=== PATIENT | female | born 1990 | race African-American/Black ===

== ENCOUNTER 2017-07-13 19:37 | Emergency (ER) | payer OTHER ==
[2017-07-13 19:50] VITALS: BP 116/76; TEMP 99.4; BMI 29.2
[2017-07-13] MEDS ORDERED: LIDOCAINE HCL 1%, 10 MG/ML (20ML VIAL) ONE (21:35)
[2017-07-13] MEDS ORDERED: traMADol HCL 50 MG TABLET ONE (21:39)
[2017-07-13] MEDS ORDERED: traMADol HCL 50 MG TABLET PO ONE (21:58)
--- NOTE | 2017-07-13 22:20 | PDOC ---
History of Present Illness - General Chief Complaint: Abscess Boil Stated Complaint: CYST Time Seen by Provider: 07/13/17 21:19 History Source: Patient - History of Present Illness Location: reports: other (R axilla) Past History - Past Medical History Allergies/Adverse Reactions: Allergies Allergy/AdvReac Type Severity Reaction Status Date / Time No Known Allergies Allergy Verified 07/13/17 19:48 Home Medications: Ambulatory Orders Vitamins (Sjr) - 1 tab PO DAILY 02/02/13 Iron 1 tab PO DAILY 02/13/13 Oxycodone HCl/Acetaminophen [Percocet 5-325 mg Tablet -] 1 tab PO Q4H #20 tablet 02/16/13 Labetalol HCl [Normodyne -] 200 mg PO BID #1 tablet 02/17/13 Labetalol HCl [Normodyne -] 200 mg PO BID #30 tablet 02/20/13 Clindamycin [Cleocin -] 300 mg PO Q6HPO #28 capsule 07/13/17 Ibuprofen [Motrin -] 2 tab PO QID #28 tablet 07/13/17 Asthma: No Cancer: No Cardiac Disorders: No COPD: No Diabetes: No HTN: No Seizures: Yes Thyroid Disease: No - Reproductive History (#): 1 Para: 1 Therapeutic (s) & number: No Spontaneous : 0 - Suicide/Smoking/Psychosocial Hx Smoking Status: Yes Smoking History: Current every day smoker Have you smoked in the past 12 months: No Number of Cigarettes Smoked Daily: 5 Information on smoking cessation initiated: No Hx Alcohol Use: No Drug/Substance Use Hx: No Hx Substance Use Treatment: No Review of Systems - Review of Systems Constitutional: No: Chills, Fever Integumentary: Yes: Other (abscess) *Physical Exam - Vital Signs Last Vital Signs Temp Pulse Resp BP Pulse Ox 99.4 F 120 H 18 116/76 98 07/13/17 19:48 07/13/17 19:48 07/13/17 19:48 07/13/17 19:48 07/13/17 19:48 - Physical Exam General Appearance: Yes: Appropriately Dressed. No: Apparent Distress HEENT: positive: Normal Voice Neck: positive: Supple Respiratory/Chest: positive: Lungs Clear, Normal Breath Sounds. negative: Respiratory Distress Cardiovascular: positive: S1, S2 Integumentary: positive: Dry, Warm, Other (5x2 cm induration to R axilla, no erythema) Neurologic: positive: Fully Oriented, Alert, Normal Mood/Affect Procedures - Incision and Drainage I&D Site: Right: Axilla Betadine cleansed: Yes Anesthesia: 1% Lidocaine Volume(ml): 7 Blade Size: 11 Attempts: 1 (w/ copious purulent drainage) Iodinated Packin/ in Complications: none Dressing: Yes ED Treatment Course - Medications Given in the ED: ED Medications Discontinued Medications Generic Name Dose Route Start Last Admin Trade Name David PRN Reason Stop Dose Admin Tramadol HCl 50 mg 07/13/17 21:58 07/13/17 21:39 Ultram - PO 07/13/17 21:59 50 mg ONCE ONE Administration Medical Decision Making - Medical Decision Making 07/13/17 22:47 26-year-old female, history of recurrent abscesses, here with abscess to right axilla x several days. No trauma. Denies fever or chills. Patient well- appearing with tachycardia to 120 at triage, that decreased to 108 without any intervention. Abscess I&D with copious amount of purulent drainage. Packing placed and patient started on antibiotics. Tetanus up-to-date. Patient to appear for wound check in 48 hours, as discussed *DC/Admit/Observation/Transfer Diagnosis at time of Disposition: Abscess - Discharge Dispostion Disposition: HOME Condition at time of disposition: Improved - Prescriptions Prescriptions: Clindamycin [Cleocin -] 300 mg PO Q6HPO #28 capsule Ibuprofen [Motrin -] 2 tab PO QID #28 tablet - Referrals - Patient Instructions Printed Discharge Instructions: DI for Incision and Drainage of a Skin Abscess Additional Instructions: Keep wound clean and dry for the next 2 days. Take antibiotics and Motrin as directed. Return in 2 days for wound check - Post Discharge Activity Forms/Work/School Notes: Back to Work
[2017-07-13 22:43] VITALS: PULSE 108
== END 2017-07-13 22:43 | disposition home or self-care (01) ==
LOC: JER 19:37
PROC: 0J980ZZ Drainage of Abdomen Subcutaneous Tissue and Fascia, Open Approach (ICD-10-PCS; principal; 2017-07-13)
DX: L02.411 Cutaneous abscess of right axilla (principal)
CPT/HCPCS: 10060; 99282-25

== ENCOUNTER 2019-08-17 16:03 | Emergency (ER) | payer OTHER ==
--- NOTE | 2019-08-17 16:09 | PDOC ---
Rapid Medical Evaluation Chief Complaint: Laceration Time Seen by Provider: 08/17/19 16:06 Medical Evaluation: Allergies Allergy/AdvReac Type Severity Reaction Status Date / Time No Known Allergies Allergy Verified 07/13/17 19:48 08/17/19 16:07 I performed a brief in-person evaluation of this patient. Pt is a 28 y/o female who injured her R MF with a window. The window broke and she believes she has glass in her wound. She states her last tetanus was less than 5 years ago. Pertinent physical exam findings: R MF bandaged, sensation intact distally I have ordered the following: R hand xr Patient to proceed to ED for further evaluation. Discharge Disposition - Diagnosis Laceration of right middle finger - Referrals - Patient Instructions - Post Discharge Activity
[2019-08-17 16:15] VITALS: BP 109/74; PULSE 95; TEMP 98.1; BMI 28.0
--- NOTE | 2019-08-17 17:01 | PDOC ---
History of Present Illness - General Chief Complaint: Laceration Stated Complaint: FINGER INJURY-LACERATION Time Seen by Provider: 08/17/19 16:06 History Source: Patient Exam Limitations: Clinical Condition - History of Present Illness Initial Comments: 08/17/19 17:03 Patient with no significant past medical history present with complaint of laceration to back of right middle finger status post cleaning glass accidentally cut herself with a piece of glass prior to arrival. Patient is not sure if a piece of glass was left in the finger. Reported last tetanus vaccine in the last 5 years. Denies numbness or tingling sensation or difficulty moving finger. Reported bleeding to fingers stopped after putting bandage. Denies any other symptoms Timing/Duration: reports: just prior to arrival Past History - Medical History Allergies/Adverse Reactions: Allergies Allergy/AdvReac Type Severity Reaction Status Date / Time No Known Allergies Allergy Verified 08/17/19 16:10 Home Medications: Ambulatory Orders Vitamins (Sjr) - 1 tab PO DAILY 02/02/13 Iron 1 tab PO DAILY 02/13/13 Oxycodone HCl/Acetaminophen [Percocet 5-325 mg Tablet -] 1 tab PO Q4H #20 tablet 02/16/13 Labetalol HCl [Normodyne -] 200 mg PO BID #1 tablet 02/17/13 Labetalol HCl [Normodyne -] 200 mg PO BID #30 tablet 02/20/13 Clindamycin [Cleocin -] 300 mg PO Q6HPO #28 capsule 07/13/17 Ibuprofen [Motrin -] 2 tab PO QID #28 tablet 07/13/17 Amox-Tr/K Cl [Augmentin - 875Mg Tablet] 1 tab PO BID #14 tablet 08/17/19 Asthma: No Cancer: No Cardiac Disorders: No COPD: No Diabetes: No HTN: No Seizures: Yes Thyroid Disease: No - Reproductive History (#): 1 Para: 1 Therapeutic (s) & number: No Spontaneous : 0 - Psycho-Social/Smoking History Smoking Status: Yes Smoking History: Current every day smoker Have you smoked in the past 12 months: Yes Number of Cigarettes Smoked Daily: 3 Information on smoking cessation initiated: No - Substance Abuse Hx (Audit-C & DAST Scrn) How often the patient has a drink containing alcohol: Never Score: In Men: 4 or > Positive; In Women: 3 or > Positive: 0 Screen Result (Pos requires Nsg. Audit-10AR): Negative Review of Systems - Review of Systems Able to Perform ROS?: Yes Is the patient limited Romanian proficient: No Constitutional: No: Chills, Fever, Malaise HEENTM: No: Symptoms Reported, See HPI, Eye Pain, Blurred Vision, Tearing, Recent change in vision, Double Vision, Cataracts, Ear Pain, Ocular Prothesis, Ear Discharge, Nose Pain, Nose Congestion, Tinnitus, Nose Bleeding, Hearing Loss, Throat Pain, Throat Swelling, Mouth Pain, Dental Problems, Difficulty Swallowing, Mouth Swelling, Other Respiratory: No: Symptoms reported, See HPI, Cough, Orthopnea, Shortness of Breath, SOB with Exertion, SOB at Rest, Stridor, Wheezing, Productive cough, Hemoptysis, Other Cardiac (ROS): No: Symptoms Reported ABD/GI: No: Symptoms Reported Musculoskeletal: No: Symptoms Reported, Muscle Pain Integumentary: Yes: Symptoms Reported, See HPI, Other (Laceration to back of right middle finger) Neurological: No: Symptoms reported, Paresthesia, Tingling All Other Systems: Reviewed and Negative *Physical Exam - Vital Signs Last Vital Signs Temp Pulse Resp BP Pulse Ox 98.1 F 95 H 18 109/74 100 08/17/19 16:06 08/17/19 16:06 08/17/19 16:06 08/17/19 16:06 08/17/19 16:06 - Physical Exam 08/17/19 17:08 GENERAL: Well developed, well nourished. Awake and alert. No acute distress. PULMONARY: No evidence of respiratory distress. MUSCULOSKELETAL : mild tenderness over dorsal aspect of middle phalange of right index finger over 1 cm superficial laceration with a skin flap. Full range of motion of fingers. 5 out of 5 strength to fingers SKIN: Warm and dry. Normal capillary refill. 1 cm superficial laceration with skin flap to proximal aspect of middle phalange of right index finger with minimal bleeding. Another 1 mm superficial abrasion to back of right hand without bleeding NEUROLOGICAL: Alert, awake, appropriate. No motor deficits in the lower extremities. Gait is normal without ataxia. PSYCHIATRIC: Cooperative. Good eye contact. Appropriate mood and affect. General Appearance: Yes: Nourished, Appropriately Dressed. No: Apparent Distress Procedures - Laceration/Wound Repair Right Posterior Proximal Dorsal Finger 3rd digit Wound Length: to 2.5 cm Wound Explored: no foreign body present Wound's Depth, Shape: superficial, flap Irrigated w/ Saline: Yes Betadine Prep: Yes Amount of Anesthetic (ccs): 0 Wound Repaired With: Steri-strips Layer Closure: No Sterile Dressing Applied: Yes Splint Applied: No Sling Applied: No Progress: 08/17/19 17:07 cm superficial laceration with skin evulsion with a flap to dorsal aspect of right middle finger on proximal aspect of middle phalange with minimal bleeding. No foreign body seen on wound. Another 1 mm superficial abrasion to back of right hand with no bleeding. Wound irrigated with normal saline. X-ray of the finger shows no foreign body on x-ray. Laceration closed with Dermabond and Steri-Strips applied to wound. Patient tolerated procedure well and wound covered adhesive bandage. Medical Decision Making - Medical Decision Making 08/17/19 17:04 Patient with no significant past medical history present with complaint of laceration to back of right middle finger status post cleaning glass accidentally cut herself with a piece of glass prior to arrival. Patient is not sure if a piece of glass was left in the finger. Reported last tetanus vaccine in the last 5 years. Denies numbness or tingling sensation or difficulty moving finger. Reported bleeding to fingers stopped after putting bandage. Denies any other symptoms Exam significant for 1 cm superficial laceration with skin evulsion with a flap to dorsal aspect of right middle finger on proximal aspect of middle phalange with minimal bleeding. No foreign body seen on wound. Another 1 mm superficial abrasion to back of right hand with no bleeding. Wound irrigated with normal saline. X-ray of the finger shows no foreign body on x-ray. Laceration closed with Dermabond and Steri-Strips applied to wound. Patient tolerated procedure well and wound covered adhesive bandage. Patient educated on home wound care. Patient stable for discharge on Augmentin antibiotic for infection prophylaxis with PCP follow-up Discharge - Discharge Information Problems reviewed: Yes Clinical Impression/Diagnosis: Laceration of right middle finger Qualifiers: Encounter type: initial encounter Damage to nail status: without damage Foreign body presence: without foreign body Qualified Code(s): S61.212A - Laceration without foreign body of right middle finger without damage to nail, initial encounter Condition: Stable Disposition: HOME - Admission No - Additional Discharge Information Prescriptions: Amox-Tr/K Cl [Augmentin - 875Mg Tablet] 1 tab PO BID #14 tablet - Follow up/Referral Referrals: Rohit Trinidad [Primary Care Provider] - - Patient Discharge Instructions Patient Printed Discharge Instructions: DI for Laceration Repair Steri-Strips, DI for Laceration Repair With Dermabond Additional Instructions: Keep wound clean and dry for the next 24 hours. Leave Steri-Strips on for 5 days after which you should remove the Steri-Strips. Apply bacitracin to wound after removing Steri-Strips. Take prescribed antibiotics and finish it. Follow-up with primary care as needed - Post Discharge Activity
== END 2019-08-17 17:13 | disposition home or self-care (01) ==
LOC: JER 16:03 → JERFT 16:03
PROC: 0HQFXZZ Repair Right Hand Skin, External Approach (ICD-10-PCS; principal; 2019-08-17)
DX: S61.212A Laceration without foreign body of right middle finger without damage to nail, initial encounter (principal); W25.XXXA Contact with sharp glass, initial encounter
CPT/HCPCS: 73130-TC-RT-FY; 99283-25

== ENCOUNTER 2021-06-22 00:06 | Emergency (ER) | payer OTHER ==
[2021-06-22] MEDS ORDERED: ACETAMINOPHEN 325 MG TABLET (FP) PO ONE (00:30)
[2021-06-22] MEDS ORDERED: ACETAMINOPHEN 325 MG TABLET (FP) ONE (00:32)
[2021-06-22 00:46] VITALS: BP 105/65; PULSE 90; TEMP 97.8; BMI 23.0
[2021-06-22 00:56] LABS: EPI CELLS >36 /uL (0-25.1); HYALINE CASTS 55 /uL (0-3.1); PH,URINE 5.5 (5.0-8.0); URINE APPEARANCE CLOUDY; URINE BACTERIA 69 /uL (0-1359); URINE BILIRUBIN NEGATIVE (NEGATIVE); URINE COLOR DK YELLOW; URINE GLUCOSE (UA) NEGATIVE (NEGATIVE); URINE KETONE TRACE (NEGATIVE); URINE LEUK ESTERASE TRACE (NEGATIVE); URINE NITRITE NEGATIVE (NEGATIVE); URINE PROTEIN 2+ (NEGATIVE); URINE RBC 14 /uL (0-23.9); URINE WBC 71 /uL (0-25.8)
[2021-06-22 05:08] LABS: URINE CRYSTALS MANY /hpf
== END 2021-06-22 02:38 | disposition home or self-care (01) ==
LOC: JER 00:06
DX: M54.50 Low back pain, unspecified (principal)
CPT/HCPCS: 76817-TC; 81003; 87086; 99284-25

== ENCOUNTER 2021-09-26 03:10 | Emergency (ER) | payer OTHER ==
[2021-09-26 03:32] VITALS: TEMP 97.8; BMI 25.4
[2021-09-26 14:45] VITALS: BP 106/69; PULSE 73; RESP 16
== END 2021-09-26 14:45 | disposition home or self-care (01) ==
LOC: JER 03:10
DX: T76.11XA Adult physical abuse, suspected, initial encounter (principal); Y04.0XXA Assault by unarmed brawl or fight, initial encounter; Y92.9 Unspecified place or not applicable
CPT/HCPCS: 76815; 99284-25

== ENCOUNTER 2021-12-31 10:43 | Inpatient (IN) | payer OTHER ==
[2021-12-31] MEDS ORDERED: NIFEdipine 10 MG CAPSULE (FP) ONE (11:40)
[2021-12-31] MEDS: ELECTROLYTE-148 SOLN 1,000 ML IV SCH (11:45)
[2021-12-31] MEDS ORDERED: MAGNESIUM 4GM/H20 - 4 GM/100 ML IVPB IVPB ONE (11:46)
[2021-12-31] MEDS: MAGNESIUM 4GM/H20 - 4 GM/100 ML IVPB IVPB SCH (11:50)
[2021-12-31] MEDS ORDERED: MAGNESIUM SULFATE 20GM/500ML - 20 GM/500 ML INFUS.BAG ONE ×2 (12:18→21:51)
[2021-12-31] MEDS: MAGNESIUM SULFATE 20GM/500ML - 20 GM/500 ML INFUS.BAG IVPB SCH (12:20)
[2021-12-31] MEDS ORDERED: NIFEdipine 10 MG CAPSULE (FP) PO STA (12:25)
[2021-12-31] MEDS ORDERED: LABETALOL HCL 200 MG TABLET (FP) PO SCH (12:30)
[2021-12-31] MEDS ORDERED: LABETALOL HCL 200 MG TABLET (FP) ONE ×2 (12:54→21:51)
[2021-12-31 12:59] LABS: HEMOGLOBIN 12.4 GM/dL (10.7-15.3); MCHC 33.5 g/dl (32.0-36.0); MEAN CELL VOLUME 98.4 fl (80-96); MEAN PLT VOLUME 10.4 fl (7.5-11.1); PLATELET COUNT 215 10^3/uL (134-434); RBC 3.76 M/mm3 (3.60-5.2); RDW 13.4 % (11.6-15.6); WHITE BLOOD COUNT 11.3 K/mm3 (4.0-10.0)
[2021-12-31 13:24] LABS: ALBUMIN 2.9 g/dl (3.4-5.0); BLOOD UREA NITROGEN 10.7 mg/dL (7-18); CALCIUM 10.6 mg/dL (8.5-10.1)
[2021-12-31 13:27] LABS: CREATININE 0.6 mg/dL (0.55-1.3)
[2021-12-31 13:29] LABS: BILIRUBIN,TOTAL 0.4 mg/dL (0.2-1); TOT PROT 6.8 g/dl (6.4-8.2)
[2021-12-31 13:37] LABS: ANISOCYTOSIS 1+; MACROCYTOSIS 1+
[2021-12-31 13:54] VITALS: BMI 31.3
[2021-12-31 14:18] LABS: HIV INTERPRETATION NEGATIVE (NEGATIVE)
[2021-12-31 19:31] LABS: INR 0.96 (0.83-1.09)
[2021-12-31 19:34] LABS: ACTIVATED PTT 27.5 SECONDS (25.2-36.5)
[2021-12-31 19:45] LABS: MAGNESIUM 5.4 mg/dL (1.8-2.4)
[2021-12-31] MEDS ORDERED: BETAMET ACET/BETAMET NA PH 30 MG/5 ML VIAL ONE (19:55)
[2021-12-31] MEDS ORDERED: BETAMET ACET/BETAMET NA PH 30 MG/5 ML VIAL IM ONE (20:00)
[2021-12-31] MEDS: LABETALOL HCL 200 MG TABLET (FP) PO SCH (22:00)
[2022-01-01 02:24] LABS: MAGNESIUM 5.7 mg/dL (1.8-2.4)
[2022-01-01 07:20] LABS: HEMATOCRIT 33.8 % (32.4-45.2); HEMOGLOBIN 11.2 GM/dL (10.7-15.3); MCH 32.7 pg (25.7-33.7); MEAN CELL VOLUME 99.3 fl (80-96); MEAN PLT VOLUME 10.5 fl (7.5-11.1); PLATELET COUNT 228 10^3/uL (134-434); RBC 3.41 M/mm3 (3.60-5.2); RDW 13.6 % (11.6-15.6); WHITE BLOOD COUNT 12.8 K/mm3 (4.0-10.0)
[2022-01-01] MEDS ORDERED: MAGNESIUM SULFATE 20GM/500ML - 20 GM/500 ML INFUS.BAG ONE (07:47)
[2022-01-01 07:49] LABS: CHLORIDE 108 mmol/L (98-107); SODIUM 139 mmol/L (136-145)
[2022-01-01] MEDS: MAGNESIUM SULFATE 20GM/500ML - 20 GM/500 ML INFUS.BAG IVPB SCH ×2 (07:50→13:16)
[2022-01-01 07:55] LABS: ALBUMIN 2.7 g/dl (3.4-5.0); ANION GAP 11 MMOL/L (8-16); BLOOD UREA NITROGEN 12.6 mg/dL (7-18); CO2 20 mmol/L (21-32); GLUCOSE,RANDOM 167 mg/dL (74-106); MAGNESIUM 6.3 mg/dL (1.8-2.4)
[2022-01-01 07:58] LABS: CREATININE 0.7 mg/dL (0.55-1.3); SGOT/AST 16 U/L (15-37); SGPT/ALT 16 U/L (13-61)
[2022-01-01 07:59] LABS: TOT PROT 6.4 g/dl (6.4-8.2)
[2022-01-01 08:00] LABS: BILIRUBIN,TOTAL 0.4 mg/dL (0.2-1)
[2022-01-01 08:01] LABS: ALK PHOS 93 U/L (45-117)
[2022-01-01 08:04] LABS: CALCIUM 7.3 mg/dL (8.5-10.1)
[2022-01-01] MEDS ORDERED: LABETALOL HCL 200 MG TABLET (FP) ONE (09:26)
[2022-01-01 09:27] LABS: ANISOCYTOSIS 0; MACROCYTOSIS 1+
[2022-01-01] MEDS: LABETALOL HCL 200 MG TABLET (FP) PO SCH (09:44)
[2022-01-01] MEDS ORDERED: LABETALOL HCL 100 MG TABLET (FP) ONE (11:36)
[2022-01-01] MEDS ORDERED: LABETALOL HCL 100 MG TABLET (FP) PO STA (11:49)
[2022-01-01] MEDS: MAGNESIUM 4GM/H20 - 4 GM/100 ML IVPB IVPB SCH (13:14)
[2022-01-01] MEDS: ELECTROLYTE-148 SOLN 1,000 ML IV SCH (13:16)
[2022-01-01] MEDS: LABETALOL HCL 100 MG TABLET (FP) PO SCH ×2 (18:19→22:10)
[2022-01-02] MEDS ORDERED: hydrALAZINE HCL 20 MG/ML VIAL ONE (04:48)
[2022-01-02] MEDS ORDERED: hydrALAZINE HCL 20 MG/ML VIAL IVPUSH ONE ×2 (04:50→05:30)
[2022-01-02] MEDS ORDERED: NIFEdipine E.R. 30 MG TABLET PO ONE (05:30)
[2022-01-02] MEDS ORDERED: NIFEdipine E.R. 30 MG TABLET ONE (05:33)
[2022-01-02] MEDS ORDERED: LABETALOL HCL 5 MG/1 ML (100MG/20 ML VIAL) IVPUSH ONE (06:10)
[2022-01-02] MEDS ORDERED: LABETALOL HCL 5 MG/1 ML (100MG/20 ML VIAL) ONE (06:15)
[2022-01-02] MEDS ORDERED: ELECTROLYTE-148 SOLN 1,000 ML IV SCH (06:20)
[2022-01-02] MEDS ORDERED: FENTANYL CITRATE/PF 50 MCG/ML VIAL ONE ×2 (07:11→07:16)
[2022-01-02 08:39] LABS: CORD HCO3 26.2 mmHg (20-29); CORD PCO2 62.7 mmHg (30-78); CORD pH 7.239 (7.14-7.44)
[2022-01-02] MEDS ORDERED: LABETALOL HCL 100 MG TABLET (FP) ONE (08:42)
[2022-01-02] MEDS: LABETALOL HCL 100 MG TABLET (FP) PO SCH ×2 (08:45→22:00)
[2022-01-02 09:44] LABS: HEMATOCRIT 30.9 % (32.4-45.2); HEMOGLOBIN 10.1 GM/dL (10.7-15.3); MCH 32.7 pg (25.7-33.7); MCHC 32.6 g/dl (32.0-36.0); MEAN CELL VOLUME 100.2 fl (80-96); PLATELET COUNT 202 10^3/uL (134-434); RBC 3.09 M/mm3 (3.60-5.2); RDW 13.7 % (11.6-15.6); WHITE BLOOD COUNT 12.8 K/mm3 (4.0-10.0)
[2022-01-02 10:02] LABS: ALBUMIN 2.3 g/dl (3.4-5.0); BLOOD UREA NITROGEN 9.7 mg/dL (7-18); CALCIUM 7.5 mg/dL (8.5-10.1)
[2022-01-02 10:05] LABS: CREATININE 0.6 mg/dL (0.55-1.3)
[2022-01-02 10:06] LABS: BILIRUBIN,TOTAL 0.7 mg/dL (0.2-1)
[2022-01-02 10:07] LABS: TOT PROT 5.4 g/dl (6.4-8.2)
[2022-01-02 10:35] LABS: ANISOCYTOSIS 2+; MACROCYTOSIS 2+; TEAR DROP CELLS 1+
[2022-01-02] MEDS: OXYTOCIN 20 UNITS in 0.9% NS 20 UNIT/1,000 ML INFUS.BAG IV SCH ×2 (10:50→19:49)
[2022-01-02] MEDS ORDERED: OXYTOCIN 20 UNITS in 0.9% NS 20 UNIT/1,000 ML INFUS.BAG IV ONE (10:51)
[2022-01-02] MEDS ORDERED: CEFAZOLIN SODIUM 2 GM VIAL IVPB ONE (16:00)
[2022-01-02] MEDS ORDERED: CEFAZOLIN SODIUM 2 GM in DEXTROSE 5%-WATER 100 ML IVPB ONE (17:15)
[2022-01-02] MEDS ORDERED: oxyCODONE HCL 5 MG TABLET PO PRN (20:26)
[2022-01-02] MEDS: SIMETHICONE 80 MG TAB.CHEW (FP) PO PRN (22:00)
[2022-01-02] MEDS: IBUPROFEN 600 MG TABLET (FP) PO PRN (22:00)
[2022-01-03 08:12] LABS: BASO % 0.3 % (0-2.0); EOS % 0.2 % (0-4.5); HEMATOCRIT 26.5 % (32.4-45.2); HEMOGLOBIN 8.7 GM/dL (10.7-15.3); LYMPH % 10.5 % (8-40); MCH 33.1 pg (25.7-33.7); MCHC 32.9 g/dl (32.0-36.0); MEAN CELL VOLUME 100.7 fl (80-96); MEAN PLT VOLUME 9.7 fl (7.5-11.1); MONO % 6.9 % (3.8-10.2); NEUT % 82.1 % (42.8-82.8); PLATELET COUNT 177 10^3/uL (134-434); RBC 2.63 M/mm3 (3.60-5.2); RDW 13.4 % (11.6-15.6); WHITE BLOOD COUNT 14.2 K/mm3 (4.0-10.0)
[2022-01-03] MEDS: ACETAMINOPHEN 325 MG TABLET (FP) PO PRN (08:20)
[2022-01-03] MEDS: NIFEdipine E.R. 30 MG TABLET PO SCH ×2 (08:20→09:49)
[2022-01-03] MEDS: SIMETHICONE 80 MG TAB.CHEW (FP) PO PRN ×2 (08:20→20:15)
[2022-01-03] MEDS ORDERED: BISACODYL 10 MG SUPP.RECT RC PRN (08:26)
[2022-01-03] MEDS: LABETALOL HCL 100 MG TABLET (FP) PO SCH ×2 (09:58→21:56)
[2022-01-03] MEDS: IBUPROFEN 600 MG TABLET (FP) PO PRN ×2 (12:41→20:15)
[2022-01-04] MEDS: ACETAMINOPHEN 325 MG TABLET (FP) PO PRN ×2 (00:57→09:17)
[2022-01-04] MEDS: SIMETHICONE 80 MG TAB.CHEW (FP) PO PRN ×4 (00:58→19:09)
[2022-01-04] MEDS: IBUPROFEN 600 MG TABLET (FP) PO PRN ×2 (06:34→12:23)
[2022-01-04] MEDS: LABETALOL HCL 100 MG TABLET (FP) PO SCH ×2 (09:18→21:05)
[2022-01-04] MEDS: NIFEdipine E.R. 30 MG TABLET PO SCH (09:18)
[2022-01-05 01:03] VITALS: RESP 16; TEMP 98
[2022-01-05] MEDS: ACETAMINOPHEN 325 MG TABLET (FP) PO PRN (01:32)
[2022-01-05] MEDS: SIMETHICONE 80 MG TAB.CHEW (FP) PO PRN (01:32)
[2022-01-05 05:44] VITALS: BP 126/82; PULSE 99
[2022-01-05] MEDS: IBUPROFEN 600 MG TABLET (FP) PO PRN (06:59)
[2022-01-05 07:41] LABS: BASO % 0.4 % (0-2.0); EOS % 1.2 % (0-4.5); HEMATOCRIT 27.4 % (32.4-45.2); HEMOGLOBIN 9.1 GM/dL (10.7-15.3); LYMPH % 19.7 % (8-40); MCH 33.3 pg (25.7-33.7); MCHC 33.3 g/dl (32.0-36.0); MEAN CELL VOLUME 99.9 fl (80-96); MEAN PLT VOLUME 8.9 fl (7.5-11.1); MONO % 8.6 % (3.8-10.2); NEUT % 70.1 % (42.8-82.8); PLATELET COUNT 256 10^3/uL (134-434); RBC 2.74 M/mm3 (3.60-5.2); RDW 13.7 % (11.6-15.6); WHITE BLOOD COUNT 10.6 K/mm3 (4.0-10.0)
== END 2022-01-05 10:20 | disposition left against medical advice (07) | DRG 540 ==
LOC: JDEL 10:43 → JLDR 11:40 → J3W 01-01 13:05 → JLDR 01-02 04:38 → J3W 01-02 12:30
PROVIDERS: ADMIT Student in an Organized Health Care Education/Training Program; ATTEND Student in an Organized Health Care Education/Training Program
PROC: 10D00Z1 Extraction of Products of Conception, Low, Open Approach (ICD-10-PCS; principal; 2022-01-02)
PROC: 0DNW0ZZ Release Peritoneum, Open Approach (ICD-10-PCS; 2022-01-02)
DX: O14.14 Severe pre-eclampsia complicating childbirth (principal); O36.5930 Maternal care for other known or suspected poor fetal growth, third trimester, not applicable or unspecified; O69.81X0 Labor and delivery complicated by cord around neck, without compression, not applicable or unspecified; O34.211 Maternal care for low transverse scar from previous cesarean delivery; N73.6 Female pelvic peritoneal adhesions (postinfective); Z86.69 Personal history of other diseases of the nervous system and sense organs; Z3A.33 33 weeks gestation of pregnancy; Z37.0 Single live birth
CPT/HCPCS: 36415; 36600; 59025; 80053; 80307; 82570; 82803; 82977; 83010; 83735; 84156; 84550; 85025; 85032; 85045; 85610; 85730; 86780; 86850; 86900; 86901; 87389; 88307-TC; 96372; C9803-CS; U0003; U0005

== ENCOUNTER 2022-01-05 12:16 | Emergency (ER) | payer OTHER ==
[2022-01-05 13:14] VITALS: BP 139/96; PULSE 103; RESP 19; TEMP 98.7; BMI 30.2
[2022-01-05 17:38] LABS: BASO % 0.3 % (0-2.0); EOS % 1.7 % (0-4.5); HEMATOCRIT 29.3 % (32.4-45.2); HEMOGLOBIN 9.6 GM/dL (10.7-15.3); LYMPH % 19.3 % (8-40); MCH 32.9 pg (25.7-33.7); MCHC 32.9 g/dl (32.0-36.0); NEUT % 71.7 % (42.8-82.8); PLATELET COUNT 302 10^3/uL (134-434); RBC 2.93 M/mm3 (3.60-5.2); RDW 13.6 % (11.6-15.6); WHITE BLOOD COUNT 10.6 K/mm3 (4.0-10.0)
[2022-01-05 17:59] LABS: BLOOD UREA NITROGEN 16.4 mg/dL (7-18)
[2022-01-05 18:02] LABS: CREATININE 0.6 mg/dL (0.55-1.3)
[2022-01-05 18:03] LABS: BILIRUBIN,TOTAL 0.4 mg/dL (0.2-1)
[2022-01-05 18:04] LABS: TOT PROT 6.9 g/dl (6.4-8.2)
[2022-01-05 18:09] LABS: ALBUMIN 2.8 g/dl (3.4-5.0); CALCIUM 9.9 mg/dL (8.5-10.1)
== END 2022-01-05 19:12 | disposition home or self-care (01) ==
LOC: JER 12:16
DX: R10.9 Unspecified abdominal pain (principal)
CPT/HCPCS: 36415; 71046-TC-FY; 80053; 85025; 93005; 93010; 99285-25

== ENCOUNTER 2022-01-19 16:02 | Emergency (ER) | payer OTHER ==
[2022-01-19 16:19] VITALS: BP 127/85; PULSE 99; RESP 20; TEMP 97.9; BMI 26.4
== END 2022-01-19 19:13 | disposition home or self-care (01) ==
LOC: JERFT 16:02 → JER 16:02 → JERFT 19:13
DX: U07.1 COVID-19 (principal)
CPT/HCPCS: 0241U-QW; 99283-25